=== PATIENT | female | born 1975 ===

== ENCOUNTER 2018-10-03 12:28 | Outpatient (CLI) | payer BC, OTHER ==
--- NOTE | 2018-10-03 13:04 | MMO ---
Bilateral MAMMO Bilat Screen [facility]. CLINICAL HISTORY: Patient is 42 years old and is seen for screening. The patient has no family history of breast cancer. The patient has no personal history of cancer. VIEWS: The views performed were: bilateral craniocaudal with tomosynthesis and bilateral mediolateral oblique with tomosynthesis. FILMS COMPARED: The present examination has been compared to a prior imaging study performed at [facility] on 11/01/2011. MAMMOGRAM FINDINGS: There are scattered fibroglandular densities. There are no suspicious masses, calcifications or areas of architectural distortion. IMPRESSION: THERE IS NO MAMMOGRAPHIC EVIDENCE OF MALIGNANCY. A ROUTINE FOLLOW-UP MAMMOGRAM IN 1 YEAR IS RECOMMENDED. THE RESULTS OF THIS EXAM WERE SENT TO THE PATIENT. ACR BI-RADS Category 1 - Negative MAMMOGRAPHY NOTE: 1. A negative mammogram report should not delay a biopsy if a dominant of clinically suspicious mass is present. 2. Approximately 10% to 15% of breast cancers are not detected by mammography. 3. Adenosis and dense breasts may obscure an underlying neoplasm.
== END 2018-10-03 12:29 | disposition home or self-care (01) ==
LOC: BICMAMMO 12:28
PROVIDERS: ATTEND Specialist
DX: Z12.31 Encounter for screening mammogram for malignant neoplasm of breast (principal)
CPT/HCPCS: 77063; 77067

== ENCOUNTER 2018-11-13 12:29 | Outpatient (CLI) | payer BC ==
--- NOTE | 2018-11-13 12:43 | RAD ---
Right foot 3 views HISTORY: Right foot pain. Fracture. FINDINGS: Increased periosteal reaction and callus formation adjacent to the transverse fracture of t he proximal fifth metatarsal. Fracture plane remains very lucent. Lisfranc joint alignment is anatomic. Plantar arch is maintained. IMPRESSION: While there are some reactive changes about the fifth metatarsal fracture, no osseous rudi dging across the fracture has occurred.
== END 2018-11-13 12:30 | disposition home or self-care (01) ==
LOC: BICRAD 12:29
PROVIDERS: ATTEND Specialist
DX: S92.351K Displaced fracture of fifth metatarsal bone, right foot, subsequent encounter for fracture with nonunion (principal)